=== PATIENT | male | born 1940 | race Caucasian/White ===

== ENCOUNTER → 2018-11-27 | Outpatient (CLI) | payer OTHER | LOC: M.CT 09:00 | DX: I25.10 Atherosclerotic heart disease of native coronary artery without angina pectoris (principal); E78.5 Hyperlipidemia, unspecified ==

== ENCOUNTER → 2019-12-16 | Outpatient (CLI) | payer MEDICARE, BC ==
--- NOTE | 2019-12-20 15:35 | SLEEP ---
[address] [address] SLEEP STUDY REPORT Name: LEVI AWAD Room: [facility]#: [id number] Admission: 12/16/19 Attend Phys: Arjun Valdivia Discharge: Date of : 42 Report #: [id number] THIS REPORT FOR: //name// CC: Breonna Jackson DO This study has been reviewed in its entirety by a board certified sleep specialist DATE OF SERVICE: 12/16/2019 SLEEP STUDY ATTENDING PHYSICIAN: Breonna Jackson DO. The patient is a 79-year-old who weighs 205 pounds with a BMI of 29.4. The patient's Greene score was 8. The patient has history of previous sleep apnea and has been using CPAP. This was a requalification split night study. During the night study, the patient spent 418 minutes in bed and slept for 129 minutes with a low sleep efficiency of 31%. Sleep latency was 5.9 minutes with a REM latency of 184 minutes. Sleep architecture showed increased stage 1 sleep, normal stage 2 sleep, normal slow wave and reduced REM sleep, which was 4% of total sleep time. During the initial diagnostic portion of the study, the patient slept for 61 minutes. During that time, the patient had 42 obstructive apneas, no mixed apneas, 7 central apneas and 14 hypopneas. The patient's apnea hypopnea index was 65 per hour with a REM index of 60 per hour and a supine index of 64.9 per hour. EKG monitoring revealed average heart rate of 60 beats per minute. No sustained arrhythmias observed. No PLMS observed. Nocturnal oximetry study revealed an average oxygen saturation of 96% with the lowest of 85%. One minute was spent in oxygen saturation less than 89%. The patient met the criteria for CPAP initiation. It was started at 5 cm water and titrated up to 17 cm water. At the final pressure, the patient slept for 33.5 minutes. The patient did not have REM sleep. The patient's AHI was reduced to 0 per hour and oxygen saturations remained above 93%. The patient had supine sleep at the final pressure. IMPRESSION: [place] [address] SLEEP STUDY REPORT Name: LEVI AWAD Room: [facility]#: [id number] Admission: 12/16/19 Attend Phys: Arjun Valdivia Discharge: Date of : 42 Report #: [id number] 1. Severe sleep apnea-hypopnea syndrome at an AHI of 65 per hour. 2. No clinically significant nocturnal hypoxia. 3. No clinically significant periodic limb movements. 4. 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 RECOMMENDATIONS: 1. CPAP at 17 cm water completely eliminated the patient's sleep apnea and should be used on a nightly basis. 2. Follow up in 4-6 weeks to assess compliance with CPAP and to document clinical improvement. 3. Weight loss is advised. 4. Avoid [employer] depressants. 5. Cautioned regarding driving until symptoms of sleep apnea resolve with the use of CPAP. 6. If patients insomnia persist despite use of CPAP, then it should be treated according to etiology. <ELECTRONICALLY SIGNED> By: Yousuf Quezada MD 12/20/19 [id number] Quezada MD /nt
== END ==
LOC: M.SLEEPLAB 20:00
DX: G47.33 Obstructive sleep apnea (adult) (pediatric) (principal)

== ENCOUNTER → 2021-05-31 | Outpatient (CLI) | payer MEDICARE, BC | LOC: M.RAD 10:58 | PROVIDERS: ATTEND Family Medicine | DX: M85.80 Other specified disorders of bone density and structure, unspecified site (principal); M81.0 Age-related osteoporosis without current pathological fracture ==